=== PATIENT | male | born 2005 | race Caucasian/White ===

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

== ENCOUNTER 2025-09-09 07:38 | Emergency (ER) | payer OTHER, BC, SELFPAY ==
[2025-09-09] VITALS (9 sets, daily range): BP systolic 120–157; BP diastolic 60–94; PULSE 74–91; RESP 14–16; TEMP 36.5–36.8; O2SAT 98–100
--- NOTE | ~2025-09-09 | XR_ITS ---
EXAMINATION: XR hip RT 2V w AP pelvis DATE: 09/09/2025 08:35 INDICATION: Right hip pain post fall TECHNIQUE: Anteroposterior view of the pelvis and anteroposterior and frog-leg lateral views of the right hip were obtained. COMPARISON: None. FINDINGS: Bone alignment is normal. No fracture or suspected osteonecrosis. There is mild decreased anterosuperior femoral head/neck offset on the right which could predispose towards cam-type femoral acetabular impingement. Joint spaces are normal. Soft tissues are unremarkable. IMPRESSION: 1. No acute osseous abnormality. 2. Right-sided mild decreased femoral head/neck offset which could predispose towards cam-type femoral acetabular impingement. Reviewed, dictated and finalized at location A. WORKER IMPRESSION: 1. No acute osseous abnormality. 2. Right-sided mild decreased femoral head/neck offset which could predispose t owards cam-type femoral acetabular impingement.
[2025-09-09] MEDS: KETOROLAC (*BKC) 60 MG/2 ML VIAL IM (08:20)
--- NOTE | 2025-09-09 08:37 | ED.GENADULT ---
HPI - General Adult General Chief complaint: Unspecified Stated complaint: groin pain X3 days Time Seen by Provider: 09/09/25 07:41 History of Present Illness HPI narrative: Patient is a 20 year old male who presents ER with pain to right hip area. He was at work and was stepping down felt a jarring action that has caused him some pain since then. No improvement with Tylenol. No numbness or tingling to lower extremity. Denies fevers or chills or sweats. No swelling. No urinary symptoms. Related Data Allergies Allergy/AdvReac Type Severity Reaction Status Date / Time No Known Allergies Allergy Verified 09/09/25 07:47 Review of Systems Review of Systems: All systems reviewed & are unremarkable except as noted in HPI and below Constitutional: Constitutional: Reports no additional constitutional complaints Gastrointestinal: Gastrointestinal: Reports no additional gastrointestinal complaints Genitourinary: Genitourinary: Reports no additional male genitourinary complaints Musculoskeletal: Musculoskeletal: Reports no additional musculoskeletal complaints PMF Past Medical History Medical History (Updated 09/09/25 @ 09:35 by Fabien Le MD) No active medical problems Social History Social History (Updated 02/02/24 @ 13:49 by Afia Rivera PA-C) Smoking status: Never smoker Exam Narrative: GENERAL: Well-appearing, well-nourished, and in no acute distress. HEAD: Normocephalic, atraumatic. ENT: Mucous membranes moist. CHEST: Clear to auscultation. No respiratory distress. HEART: Regular rate and rhythm. Normal peripheral pulses. EXTREMITIES: Normal range of motion. No edema. Mild pain in the right inguinal crease at the hip flexors and patient has increased pain with lateral abduction and has a click feel/sound at the joint. SKIN: Warm, dry, no rash. NEURO: Alert and oriented x3. PSYCH: Normal mood and affect. Course Course Emergency Course: Informed of imaging results. Will place on anti-inflammatories. Recommend follow-up with Orthopedic surgery. May require PT if symptoms persist. Vital Signs Vital signs: Vital Signs Temperature 98.2 F 09/09/25 07:45 Pulse Rate 87 09/09/25 07:45 Respiratory Rate 16 09/09/25 07:45 Blood Pressure 144/82 H 09/09/25 07:45 Pulse Oximetry 99 09/09/25 07:45 Temperature 97.7 F 09/09/25 07:53 Pulse Rate 88 09/09/25 08:17 Respiratory Rate 16 09/09/25 08:17 Blood Pressure 142/60 H 09/09/25 08:17 Pulse Oximetry 100 09/09/25 08:17 MDM Differential Diagnosis Differential Diagnosis: Muscle strain, lymphadenopathy, UTI, hip fracture Imaging Data Radiologist's impression: ITS Impressions Hip/Pelvis X-Ray 09/09/25 08:48 IMPRESSION: 1. No acute osseous abnormality. 2. Right-sided mild decreased femoral head/neck offset which could predispose towards cam-type femoral acetabular impingement. Discharge Plan Discharge Clinical Impression: Strain of flexor muscle of right hip Patient Disposition: Home Condition: Stable Instructions: Muscle Strain (ED), P.R.I.C.E. Treatment (ED) Additional Instructions: Take anti-inflammatory medication to help with pain. You may also ice the area for 20 minutes at a time. Follow-up with orthopedic surgery if you are having additional pain/discomfort. Your x-ray shows a predisposition to hip impingement which may be affecting some of her discomfort at this time. Patient Language: Togolese Prescriptions: New naproxen 375 mg tablet 375 mg PO BID Qty: 14 0RF No Action amoxicillin-pot clavulanate 875-125 mg tablet 1 tablet PO Q12H 5 Days Qty: 10 0RF Follow-up/Referrals: Biju Cloud MD [Physician, Orthopedics] - 1 Week PHYSICIAN,BUSINESS CONTINUITY PLANNING DIRECTOR [Primary Care Provider, Internal Medicine]
== END 2025-09-09 09:45 | disposition home or self-care (01) ==
PROVIDERS: Emergency Provider Emergency Medicine
DX: S76.011A Strain of muscle, fascia and tendon of right hip, initial encounter (principal); X50.9XXA Other and unspecified overexertion or strenuous movements or postures, initial encounter
CPT/HCPCS: 73502; 96372; 99283; J1885